=== PATIENT | female | born 1995 | race Caucasian/White ===

== ENCOUNTER 2017-05-07 07:55 | Emergency (ER) | payer BC ==
[2017-05-07 07:57] VITALS: BP 119/65; PULSE 88; RESP 12; TEMP 98.7; O2SAT 100
[2017-05-07] MEDS ORDERED: NEOM0.1O4 LEFT EYE (08:16)
--- NOTE | 2017-05-07 08:16 | PD ---
HPI Chief Complaint: Eye Problems/Injury Time Seen by Provider: 08:00 Travel History International Travel<30 days: No Contact w/Intl Traveler<30days: No Traveled to known affect area: No History of Present Illness HPI 21-year-old female presents emergency department with painful watery left eye for the last 2 days. Patient admits to wearing her contacts overnight 2 days ago. She has had problems since that time. She is currently wearing her glasses. She denies significant visual problems. She denies any other complaints. Pain in the eyes 6 out of 10. She has no known drug allergies. [facility] Social History Alcohol Use: No Tobacco Use: No Substance Use: No Allergies-Medications (Allergen,Severity, Reaction): Coded Allergies: No Known Allergies (Unverified , 05/07/17) Review of Systems Except as stated in HPI: all other systems reviewed are Neg General / Constitutional: No: Fever Eyes: Positive: Photophobia, Redness, Pain, Tearing, No: Diploplia, Blurred Vision, Drainage, Foreign Body Sensation, Blind Spots, Visual changes, Blindness HENT: No: Headaches Cardiovascular: No: Chest Pain or Discomfort Respiratory: No: Shortness of Breath Gastrointestinal: No: Abdominal Pain Genitourinary: No: Dysuria Musculoskeletal: No: Pain Skin: No Rash Neurologic: No: Weakness Psychiatric: No: Depression Endocrine: No: Polydipsia Hematologic/Lymphatic: No: Easy Bruising Physical Exam Narrative GENERAL: Patient appears in mild distress per SKIN: Warm and dry. Normal color. Normal turgor. No rash HEAD: Atraumatic. Normocephalic. EYES: Pupils equal and round. No scleral icterus. Patient has mild to moderate conjunctival injection on the left with watery drainage. Cornea shows no obvious abrasion or deformity. ENT: No nasal bleeding or discharge. Mucous membranes pink and moist. Pharynx is clear. TMs are clear. Airways patent. NECK: Trachea midline. Supple and nontender CARDIOVASCULAR: Regular rate and rhythm. RESPIRATORY: No accessory muscle use. Clear to auscultation. Breath sounds equal bilaterally. GASTROINTESTINAL: Abdomen soft, non-tender, nondistended. Hepatic and splenic margins not palpable. MUSCULOSKELETAL: Extremities without clubbing, cyanosis, or edema. No obvious deformities. NEUROLOGICAL: Awake and alert. No obvious cranial nerve deficits. Motor grossly within normal limits. Five out of 5 muscle strength in the arms and legs. Normal speech. PSYCHIATRIC: Appropriate mood and affect; insight and judgment normal. Data Data Last Documented VS Vital Signs Date Time Temp Pulse Resp B/P (MAP) Pulse Ox O2 Delivery O2 Flow Rate FiO2 05/07/17 07:57 98.7 88 12 119/65 (83) 100 MDM Medical Decision Making Medical Screen Exam Complete: Yes Emergency Medical Condition: Yes Differential Diagnosis Conjunctivitis. Contact injury. Corneal abrasion. Narrative Course Patient be treated with Cortisporin ophthalmic drops. Patient is not to wear contacts for at least 7 days. Patient advised to use a fresh pair of contacts when starts again. 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 Note for work is given. Diagnosis Primary Impression: Conjunctivitis, acute, left eye Qualified Codes: H10.32 - Unspecified acute conjunctivitis, left eye Referrals: Crt Departure Forms: Work Release Enter return to work date: May 08, 2017 Additional Instructions: Patient be treated with Cortisporin ophthalmic drops. Patient is not to wear contacts for at least 7 days. Patient advised to use a fresh pair of contacts when starts again. 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 Note for work is given. Med/Other Pt SpecificInfo: Prescription(s) given Disposition: 01 DISCHARGE HOME Condition: Stable Gibran Ballard May 07, 2017 08:16
== END 2017-05-07 09:06 | disposition home or self-care (01) ==
LOC: NEPK 07:55
DX: H10.32 Unspecified acute conjunctivitis, left eye (principal)
CPT/HCPCS: 99283